=== PATIENT | male | born 1990 | race Two or more races ===

== ENCOUNTER 2020-02-02 15:13 | Emergency (ER) | payer SELFPAY ==
--- NOTE | 2020-02-02 15:44 | ER Document Report ---
ED ENT - General Chief Complaint: Sore Throat Stated Complaint: SORE THROAT Time Seen by Provider: 02/02/20 15:44 Primary Care Provider: QUINTIN LONG MD [ACTIVE STAFF] - Follow up as needed Mode of Arrival: Ambulatory Information source: Patient Notes: 29-year-old male past medical history significant for asthma and gastritis presents emergency room complaining of a sore throat for the past 2 days. Complains of low-grade fever states 99-100.. States is been using [id number] TheraFlu without relief. Patient does state that he had recent oral sex with a previous partner that the he broke up with 6 years ago. Patient also recently traveled to [facility] he returned 2 days ago. Eating and drinking normally but states is painful to swallow. Does admit to a previous history of herpes to his throat. TRAVEL OUTSIDE OF THE [place] IN LAST 30 DAYS: No - Related Data Allergies/Adverse Reactions: shellfish derived Allergy (Verified 02/02/20 16:40) Past Medical History - General Information source: Patient - Social History Smoking Status: Never Smoker Frequency of alcohol use: Occasional Drug Abuse: None Family History: Reviewed & Not Pertinent Review of Systems - Review of Systems Constitutional: Fever EENT: Throat pain Cardiovascular: No symptoms reported Respiratory: No symptoms reported Genitourinary: No symptoms reported Musculoskeletal: No symptoms reported Skin: No symptoms reported Neurological/Psychological: No symptoms reported -: Yes All other systems reviewed and negative Physical Exam - Vital signs Vitals: Temp Pulse Resp BP Pulse Ox 99.4 F 96 18 181/80 H 100 02/02/20 15:21 02/02/20 15:21 02/02/20 15:21 02/02/20 15:21 02/02/20 15:21 - General General appearance: Appears well, Alert In distress: Mild - HEENT Head: Normocephalic, Atraumatic Extraocular movements intact: Yes Pupils: PERRL Ears: Normal External canal: Normal Tympanic membrane: Normal Sinus: Normal Nasal: Normal Mouth/Lips: Lesions - Tender erythematous lesions were noted on the posterior pharynx. No tonsillar enlargement. No exudate noted. Mucous membranes: Normal Pharynx: Erythema. No: Exudate, Peritonsillar abscess, Post nasal drainage Neck: Normal. No: Lymphadenopathy - Respiratory Respiratory status: No respiratory distress Chest status: Nontender Breath sounds: Normal Chest palpation: Normal - Cardiovascular Rhythm: Regular Heart sounds: Normal auscultation Murmur: No - Abdominal Inspection: Normal Distension: No distension Bowel sounds: Normal Tenderness: Nontender Organomegaly: No organomegaly - Neurological Neuro grossly intact: Yes Cognition: Normal Orientation: AAOx4 Miroslava Coma Scale Eye Opening: Spontaneous Miroslava Coma Scale Verbal: Oriented Miroslava Coma Scale Motor: Obeys Commands Miroslava Coma Scale Total: 15 Speech: Normal Motor strength normal: LUE, RUE, LLE, RLE Sensory: Normal - Skin Skin Temperature: Warm Skin Moisture: Dry Skin Color: Normal Course - Re-evaluation Re-evalutation: 02/02/20 17:44 Patient is afebrile, nontoxic-appearing, tolerates p.o. fluids. Reviewed negative stress results with patient. Discussed clinical findings and diagnosis with patient. Counseled on need to take medications as prescribed. Outpatient follow-up with a primary care physician for recheck in 2 to 3 days. On-call physician was provided. Patient was given strict return to the emergency room guidelines. Return for any new or worsening symptoms. All questions were answered. Patient verbalized understanding and agrees with plan of care. 02/02/20 20:48 - Vital Signs Vital signs: Temp Pulse Resp BP Pulse Ox 99.0 F 96 18 142/88 H 100 02/02/20 18:10 02/02/20 18:10 02/02/20 18:10 02/02/20 18:10 02/02/20 18:10 Discharge - Discharge Clinical Impression: Gingivostomatitis Acute pharyngitis Qualifiers: Pharyngitis/tonsillitis etiology: herpes simplex virus Qualified Code(s): B00.2 - Herpesviral gingivostomatitis and pharyngotonsillitis Condition: Stable Disposition: HOME, SELF-CARE Instructions: Herpes Simplex ([facility]), Sore Throat ([facility]) Additional Instructions: Medications as prescribed. Recheck with a primary care physician in 2 to 3 days. Return for any new or worsening symptoms. Prescriptions: Valacyclovir HCl [Valtrex] 1,000 mg PO BID #14 tablet Lidocaine HCl [Xylocaine 2% Viscous Soln 15 ml Udcup] 15 ml PO Q4H PRN #100 ml PRN Reason: Referrals: QUINTIN LONG MD [ACTIVE STAFF] - Follow up as needed
[2020-02-02] MEDS ORDERED: LIDOCAINE 2% VISCOUS SOLN 15 ML UDCUP PO ONE (16:33)
[2020-02-02] MEDS ORDERED: DEXAMETHASONE 4 MG TABLET PO ONE (16:35)
[2020-02-02 18:11] VITALS: BP 142/88
== END 2020-02-02 18:12 | disposition home or self-care (01) ==
LOC: EDBD 15:13 → ER 15:13
DX: B00.2 Herpesviral gingivostomatitis and pharyngotonsillitis (principal); J02.9 Acute pharyngitis, unspecified; J45.909 Unspecified asthma, uncomplicated; R50.9 Fever, unspecified; R13.10 Dysphagia, unspecified
CPT/HCPCS: 99283; 36415; 87070; 87880; J8540; J3490